=== PATIENT | male | born 1935 | race Caucasian/White ===

== ENCOUNTER 2019-10-20 14:42 | Emergency (ER) | payer MEDICARE, OTHER ==
[2019-10-20] MEDS ORDERED: Acetaminophen/HYDROcodone 325-5 MG Tab PO ONE (14:43)
[2019-10-20] MEDS: Ketorolac 30 MG/ML SDV IVPUSH ONE (15:36)
[2019-10-20] MEDS: Sodium Chloride 0.9% 1,000 ML IV ONE ×2 (15:37→17:15)
--- NOTE | 2019-10-20 15:37 | EDM.PDOC ---
ED HPI GENERAL MEDICAL PROBLEM - General Chief Complaint: Abdominal Pain Stated Complaint: LOWER ABD PAIN Time Seen by Provider: 10/20/19 15:10 Source of Information: Reports: Patient History Limitations: Reports: No Limitations - History of Present Illness INITIAL COMMENTS - FREE TEXT/NARRATIVE: c/o pain at R flank up late last night, awoke at 9a and felt fine, got up, went to bathroom at 9:30a and had a normal BM, shortly thereafter developed pain in his lower mid abd, later moved to R flank continuous, sharp, was 8-9/10, now 6-7/10, not taken meds has had kidney stones in past [facility] 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 only abd surgery was choly no f/c/d, no N, pain made him feel faint, no food today, no appetite lives with who is not ill PCP Dr Sullivan Right Abdominal Pain Score (Numeric/FACES): 5 - Related Data Allergies Allergy/AdvReac Type Severity Reaction Status Date / Time morphine Allergy unknown Verified 11/26/14 09:57 Home Meds: Home Meds Diclofenac Sodium [Voltaren] 75 mg PO WITHBREAKFAST 11/25/14 [History] Hydrochlorothiazide 25 mg PO DAILY 11/25/14 [History] Losartan [Cozaar] 50 mg PO DAILY 11/25/14 [History] Nitroglycerin [Nitrostat] 0.4 mg SL ASDIRECTED PRN 11/25/14 [History] Omeprazole [Prilosec] 20 mg PO DAILY 11/25/14 [History] Sildenafil [Viagra] 100 mg PO ASDIRECTED 11/25/14 [History] Simvastatin 40 mg PO DAILY 11/25/14 [History] amLODIPine [Norvasc] 5 mg PO DAILY 11/25/14 [History] Ketorolac [Toradol] 10 mg PO TID #15 tab 10/20/19 [Rx] Tamsulosin HCl 0.4 mg PO BID #14 capsule 10/20/19 [Rx] Past Medical History - Past Surgical History Other Musculoskeletal Surgeries/Procedures:: BILAT ANKLES ED ROS GENERAL - Review of Systems Review Of Systems: See Below Constitutional: Reports: No Symptoms HEENT: Reports: No Symptoms Respiratory: Reports: No Symptoms Cardiovascular: Reports: No Symptoms Endocrine: Reports: No Symptoms GI/Abdominal: Reports: Abdominal Pain, Decreased Appetite. Denies: Constipation, Diarrhea, Nausea, Vomiting : Reports: No Symptoms Musculoskeletal: Reports: No Symptoms Skin: Reports: No Symptoms Neurological: Reports: No Symptoms Psychiatric: Reports: No Symptoms Hematologic/Lymphatic: Reports: No Symptoms Immunologic: Reports: No Symptoms ED EXAM, GI/ABD - Physical Exam Exam: See Below Exam Limited By: Other (sitting in chair, appears uncomfortable, leans forward without difficulty) General Appearance: Alert, WD/WN, No Apparent Distress Nose: Normal Inspection, Normal Mucosa, No Blood Throat/Mouth: Normal Inspection, Normal Lips, No Airway Compromise Head: Atraumatic, Normocephalic Neck: Normal Inspection, Supple, Non-Tender, Full Range of Motion. No: Lymphadenopathy (R), Lymphadenopathy (L) Respiratory/Chest: No Respiratory Distress, Lungs Clear, Normal Breath Sounds, Chest Non-Tender Cardiovascular: Regular Rate, Rhythm, No Edema, Other (1-2/6 KANDY at LSB) GI/Abdominal Exam: Normal Bowel Sounds, Soft, No Organomegaly, No Distention, Other (very soft, NT to deep palp except 1+ tender at R flank only, RLQ NT, suprapubic NT) Back Exam: Normal Inspection, Full Range of Motion. No: CVA Tenderness (R), CVA Tenderness (L) Extremities: Normal Inspection, Normal Range of Motion, Non-Tender, No Pedal Edema Neurological: Alert, Oriented, CN II-XII Intact, Normal Cognition, No Motor/Sensory Deficits Psychiatric: Normal Affect, Normal Mood Skin Exam: Warm, Dry, Intact, Normal Color, No Rash Lymphatic: No Adenopathy Course - Orders/Labs/Meds Orders: Active Orders 24 hr Category Date Time Status Abdomen Pelvis wo Cont [CT] Stat Exams 10/20/19 15:30 Ordered Labs: Laboratory Tests 10/20/19 10/20/19 10/20/19 Range/Units 15:30 15:45 15:45 WBC 5.4 (4.5-12.0) X10-3/uL RBC 4.83 (4.30-5.75) x10(6)uL Hgb 13.8 (13.5-17.8) g/dL Hct 43.0 (30.0-51.3) % MCV 89.2 (80-96) fL MCH 28.6 (27.7-33.6) pg MCHC 32.1 L (32.2-35.4) g/dL RDW 14.7 (11.5-15.5) % Plt Count 225 (125-369) X10(3)uL MPV 7.2 L (7.4-10.4) fL Neut % (Auto) 69.6 (46-82) % Lymph % (Auto) 19.2 (13-37) % [place] % (Auto) 9.0 (4-12) % Eos % (Auto) 2 (1.0-5.0) % Baso % (Auto) 0 (0-2) % Neut # (Auto) 3.8 (1.6-8.3) # Lymph # (Auto) 1.0 (0.6-5.0) # [place] # (Auto) 0.5 (0.0-1.3) # Eos # (Auto) 0.1 (0.0-0.8) # Baso # (Auto) 0.0 (0.0-0.2) # Sodium 139 (135-145) mmol/L Potassium 4.0 (3.5-5.3) mmol/L Chloride 105 (100-110) mmol/L Carbon Dioxide 26 (21-32) mmol/L BUN 18 (7-18) mg/dL Creatinine 1.3 (0.70-1.30) mg/dL Est Cr Clr Drug Dosing 52.36 mL/min Estimated GFR (MDRD) 53 L (>60) BUN/Creatinine Ratio 13.8 (9-20) Glucose 114 (80-116) mg/dL Calcium 9.0 (8.6-10.2) mg/dL Total Bilirubin 0.9 (0.1-1.3) mg/dL AST 19 (5-25) IU/L ALT 20 (12-36) U/L Alkaline Phosphatase 118 H (56-112) IU/L C-Reactive Protein (0.5-0.9) mg/dL Total Protein 6.4 (6.0-8.0) g/dL Albumin 3.2 (3.2-4.6) g/dL Globulin 3.2 g/dL Albumin/Globulin Ratio 1.0 Lipase (73-393) U/L Urine Color [place] (YELLOW) Urine Appearance Slightly cloudy (CLEAR) Urine pH 5.0 (5.0-6.5) Ur Specific [place] 1.015 (1.010-1.025) Urine Protein 30 H (NEGATIVE) mg/dL Urine Glucose (UA) Normal (NORMAL) mg/dL Urine Ketones 15 H (NEGATIVE) mg/dL Urine Occult Blood Large H (NEGATIVE) Urine Nitrite Negative (NEGATIVE) Urine Bilirubin Negative (NEGATIVE) Urine Urobilinogen 1 H (NEGATIVE) mg/dL Ur Leukocyte Esterase Negative (NEGATIVE) Urine RBC >100 H (0-5) Urine WBC 0-5 (0-5) Ur Squamous Epith Cells Few H (NS,R,O) Urine Bacteria Few H (NS) 10/20/19 Range/Units 15:45 WBC (4.5-12.0) X10-3/uL RBC (4.30-5.75) x10(6)uL Hgb (13.5-17.8) g/dL Hct (30.0-51.3) % MCV (80-96) fL MCH (27.7-33.6) pg MCHC (32.2-35.4) g/dL RDW (11.5-15.5) % Plt Count (125-369) X10(3)uL MPV (7.4-10.4) fL Neut % (Auto) (46-82) % Lymph % (Auto) (13-37) % [place] % (Auto) (4-12) % Eos % (Auto) (1.0-5.0) % Baso % (Auto) (0-2) % Neut # (Auto) (1.6-8.3) # Lymph # (Auto) (0.6-5.0) # [place] # (Auto) (0.0-1.3) # Eos # (Auto) (0.0-0.8) # Baso # (Auto) (0.0-0.2) # Sodium (135-145) mmol/L Potassium (3.5-5.3) mmol/L Chloride (100-110) mmol/L Carbon Dioxide (21-32) mmol/L BUN (7-18) mg/dL Creatinine (0.70-1.30) mg/dL Est Cr Clr Drug Dosing mL/min Estimated GFR (MDRD) (>60) BUN/Creatinine Ratio (9-20) Glucose (80-116) mg/dL Calcium (8.6-10.2) mg/dL Total Bilirubin (0.1-1.3) mg/dL AST (5-25) IU/L ALT (12-36) U/L Alkaline Phosphatase (56-112) IU/L C-Reactive Protein < 0.2 L (0.5-0.9) mg/dL Total Protein (6.0-8.0) g/dL Albumin (3.2-4.6) g/dL Globulin g/dL Albumin/Globulin Ratio Lipase 61 L (73-393) U/L Urine Color (YELLOW) Urine Appearance (CLEAR) Urine pH (5.0-6.5) Ur Specific [place] (1.010-1.025) Urine Protein (NEGATIVE) mg/dL Urine Glucose (UA) (NORMAL) mg/dL Urine Ketones (NEGATIVE) mg/dL Urine Occult Blood (NEGATIVE) Urine Nitrite (NEGATIVE) Urine Bilirubin (NEGATIVE) Urine Urobilinogen (NEGATIVE) mg/dL Ur Leukocyte Esterase (NEGATIVE) Urine RBC (0-5) Urine WBC (0-5) Ur Squamous Epith Cells (NS,R,O) Urine Bacteria (NS) Meds: Medications Discontinued Medications Generic Name Dose Route Start Last Admin Trade Name Freq PRN Reason Stop Dose Admin Sodium Chloride 1,000 mls @ 999 mls/hr 10/20/19 15:30 10/20/19 15:37 Normal Saline IV 10/20/19 16:30 999 mls/hr .BOLUS ONE Administration Sodium Chloride 1,000 mls @ 999 mls/hr 10/20/19 16:28 Normal Saline IV 10/20/19 17:28 .BOLUS ONE Ketorolac Tromethamine 15 mg 10/20/19 15:30 10/20/19 15:36 Toradol IVPUSH 10/20/19 15:31 15 mg ONETIME ONE Administration Tamsulosin HCl 0.4 mg 10/20/19 17:42 Flomax PO 10/20/19 17:43 ONETIME ONE - Re-Assessments/Exams Free Text/Narrative Re-Assessment/Exam: 10/20/19 18:00 7.7 mm stone in R ureter on CT pt reports a 2.5 mm stone in R ureter in May, CT scans x 2 requested from [facility] [place] creat 1.3, no comparison pt will need an early referral to urology and will check Dr Sullivan in AM for referral Departure - Departure Time of Disposition: 17:45 Disposition: Home, Self-Care 01 Condition: Good Clinical Impression: Renal colic on right side, Ureteral calculus, right, Hydronephrosis due to obstruction of ureter, Hydroureter on right, Acute renal insufficiency, Dehydration, Ketonuria - Discharge Information *PRESCRIPTION DRUG MONITORING PROGRAM REVIEWED*: Not Applicable *COPY OF PRESCRIPTION DRUG MONITORING REPORT IN PATIENT MARÍA: Not Applicable Prescriptions: Tamsulosin HCl 0.4 mg PO BID #14 capsule Ketorolac [Toradol] 10 mg PO TID #15 tab Instructions: Renal Colic, Kidney Stones, Dehydration, Elderly Referrals: Julian Sullivan MD [Primary Care Provider] - Forms: ED Department Discharge Additional Instructions: Screen your urine, save stone and take in to your doctor. To prevent ureteral spasm, take ketorolac 10 mg 1 tab 3 times a day until the stone passes, for up to 5 days. To relax the ureter, take tamsulosin 0.4 mg 1 capsule 2 times a day. For breakthrough pain, take hydrocodone with acetaminophen 5/325 mg 1 tab every 4 hours as needed. No alcohol. Increase fluids. Call Dr Sullivan's office tomorrow for a urology referral. See a urologist in the next 3-5 days for further recommendations. If you have pain at home that is not controlled or develop additional symptoms such as a fever, return to the Emergency Department. - My Orders Last 24 Hours: My Active Orders 10/20/19 15:30 Abdomen Pelvis wo Cont [CT] Stat - Assessment/Plan Last 24 Hours: My Active Orders 10/20/19 15:30 Abdomen Pelvis wo Cont [CT] Stat
[2019-10-20] MEDS: Tamsulosin 0.4 MG Cap.ER PO ONE (18:06)
[2019-10-20 20:35] VITALS: BP 193/87; PULSE 59
== END 2019-10-20 18:00 | disposition home or self-care (01) ==
LOC: FB.ED 14:42
DX: E86.0 Dehydration (principal); N13.2 Hydronephrosis with renal and ureteral calculous obstruction; N28.9 Disorder of kidney and ureter, unspecified; R82.4 Acetonuria; Z88.5 Allergy status to narcotic agent; Z79.899 Other long term (current) drug therapy
CPT/HCPCS: 36415; 74176; 80053; 81001; 83690; 85025; 86140; 96361; 96374; 99284; A9270; J1885; J7030